=== PATIENT | female | born 1965 | race Caucasian/White ===

== ENCOUNTER 2024-04-25 09:05 | Emergency (ER) | payer OTHER ==
[~2024-04-25] VITALS: Ht 170.2 cm; Wt 115.7 kg
[2024-04-25 09:08] VITALS: TEMP 98.7
[2024-04-25] MEDS ORDERED: BELLADONNA ALK/PHENOBARBITAL 5 ML UDC PO STA (09:39)
[2024-04-25] MEDS ORDERED: LIDOCAINE VISC 2% SOLN 15 ML UDC PO ONE (09:45)
[2024-04-25] MEDS ORDERED: MAGNESIUM/ALUMINUM/SIMETHICONE 30 ML UDC PO ONE (09:45)
[2024-04-25 09:58] LABS: BASOPHILS % 0.2 % (0.0-1.0); EOSINOPHILS # (AUTO) 0.1 (0.0-0.4); HEMATOCRIT 35.8 % (34.2-44.1); HEMOGLOBIN 11.2 g/dL (12.0-16.0); LYMPHOCYTES # (AUTO) 1.2 (1.0-3.2); LYMPHOCYTES % 20.8 % (18.0-39.1); MEAN CORPUSCULAR HEMOGLOBIN 28.9 pg (28-32); MEAN CORPUSCULAR HGB CONC 31.3 g/dL (31-35); MEAN CORPUSCULAR VOLUME 92.3 fL (81-99); MONOCYTES # (AUTO) 0.6 (0.2-0.8); MONOCYTES % 10.1 % (4.4-11.3); NEUTROPHILS % 67.2 % (38.7-80.0); PLATELET COUNT 181 x10e3/uL (140-360); RED BLOOD COUNT 3.88 x10e6/uL (3.6-5.1); RED CELL DISTRIBUTION WIDTH 14.1 % (11.7-14.4); WHITE BLOOD COUNT 5.87 x10e3/uL (4.8-10.8)
[2024-04-25] MEDS: SODIUM CHLORIDE 0.9% 1000ML 1,000 ML IV SCH (09:59)
[2024-04-25] MEDS: ONDANSETRON HCL INJ 2MG/ML 2ML 2 MG/ML VIAL IV STA (09:59)
[2024-04-25 10:13] LABS: ALBUMIN 2.7 g/dL (3.5-5.0); ALBUMIN/GLOBULIN RATIO 0.9 (0.8-2.0); ANION GAP 10.9 mmol/L (8-16); BILIRUBIN,TOTAL 0.7 mg/dL (0.2-1.2); CALCIUM 8.8 mg/dL (8.4-10.2); CREATININE, SERUM 1.14 mg/dL (0.57-1.11); TOTAL PROTEIN 5.6 g/dL (6.5-8.1)
[2024-04-25 10:15] VITALS: PULSE 72; RESP 14; O2SAT 98
[2024-04-25 10:15] LABS: POTASSIUM 2.9 mmol/L (3.5-5.1)
[2024-04-25 10:20] LABS: TROPONIN I 0.061 ng/mL (0-0.300)
[2024-04-25] MEDS: DONNATAL/LIDOCAINE/MAALOX 30 ML SUSP PO ONE (10:26)
[2024-04-25] MEDS ORDERED: ONDANSETRON ODT4 MG PO (10:54)
[2024-04-25] MEDS: POTASSIUM CHLORIDE 20 MEQ TAB CR PO STA (11:23)
== END 2024-04-25 11:30 | disposition home or self-care (01) ==
LOC: ER 09:15 → EDBD 09:15 → ER 11:30
DX: R11.2 Nausea with vomiting, unspecified (principal); K29.70 Gastritis, unspecified, without bleeding; R51.9 Headache, unspecified; E87.6 Hypokalemia; E11.65 Type 2 diabetes mellitus with hyperglycemia; I10 Essential (primary) hypertension; E03.9 Hypothyroidism, unspecified; J45.909 Unspecified asthma, uncomplicated; F39 Unspecified mood [affective] disorder; G25.81 Restless legs syndrome; R94.31 Abnormal electrocardiogram [ECG] [EKG]; F17.210 Nicotine dependence, cigarettes, uncomplicated
CPT/HCPCS: 36415; 71045; 80053; 83690; 84484; 85025; 93005; 99284; J2405; J2470; J7030